=== PATIENT | female | born 1990 | race Caucasian/White ===

== ENCOUNTER 2017-09-02 16:41 | Emergency (ER) | payer MEDICAID ==
[~2017-09-02] VITALS: Ht 160 cm; Wt 78.6 kg
[2017-09-02 17:41] LABS: INFLUENZA TYPE B NEGATIVE FOR TYPE B (NEGATIVE)
[2017-09-02] MEDS ORDERED: ACETAMINOPHEN 500 MG TABLET PO ONE (19:15)
[2017-09-02] MEDS ORDERED: SODIUM CHLORIDE 0.9% 1,000 ML IV ONE (19:15)
[2017-09-02] MEDS ORDERED: ONDANSETRON HCL 4 MG/2 ML VIAL IVP ONE (19:15)
[2017-09-02] MEDS ORDERED: OSELTAMIVIR PHOSPHATE 75 MG CAPSULE PO ONE (19:15)
[2017-09-02 21:19] VITALS: BP 122/69
== END 2017-09-02 21:24 | disposition home or self-care (01) ==
LOC: EMS 16:45
DX: J09.X2 Influenza due to identified novel influenza A virus with other respiratory manifestations (principal); R51 Headache; R11.0 Nausea
CPT/HCPCS: 87804; 96361; 96374; 99284; J2405; J7030; 99285

== ENCOUNTER 2024-11-21 18:47 | Emergency (ER) | payer MEDICAID ==
[~2024-11-21] VITALS: Ht 152.4 cm; Wt 81.8 kg
[2024-11-21 18:51] VITALS: TEMP 98.2
[2024-11-21] MEDS: TraMADol HCL 50 MG TABLET PO ONE (21:03)
[2024-11-21 22:15] VITALS: BP 132/66; PULSE 70; RESP 16; O2SAT 98
[2024-11-21] MEDS: HYDROGEN PEROXIDE 118 ML SOLUTION TP ONE (22:24)
== END 2024-11-21 22:55 | disposition home or self-care (01) ==
LOC: EMS 18:47
DX: H61.21 Impacted cerumen, right ear (principal)
CPT/HCPCS: 69209; 99283